=== PATIENT | male | born 1940 | race Caucasian/White ===

== ENCOUNTER 2017-08-16 21:09 | Inpatient (IN) | payer MEDICARE, OTHER ==
[2017-08-16] MEDS: ONDANSETRON 4 MG INJ IV (21:42)
[2017-08-16] MEDS: HYDROCODONE/APAP (10/325) TAB PO (21:43)
[2017-08-16 21:58] LABS: ADD MAN DIFF? NO
[2017-08-16 22:03] LABS: BASOPHILS % 0.3 % (0.0-2.0); EOSINOPHILS # 0.3 10^3/ul (0.0-0.5); EOSINOPHILS % 3.9 % (0.0-7.0); HEMOGLOBIN 10.8 g/dl (14.0-18.0); LYMPHOCYTES # 1.1 10^3/ul (0.8-2.9); LYMPHOCYTES % 13.2 % (15.0-51.0); MEAN CORPUSCULAR HEMOGLOBIN 33.2 pg (29.0-33.0); MEAN CORPUSCULAR HGB CONC 33.8 g/dl (32.0-37.0); MEAN CORPUSCULAR VOLUME 98.5 fl (82.0-101.0); MONOCYTE # 0.7 10^3/ul (0.3-0.9); MONOCYTES % 8.2 % (0.0-11.0); NEUTROPHIL # 6.4 10^3/ul (1.6-7.5); NEUTROPHILS % 74.1 % (39.0-77.0); PLATELET COUNT 205 10^3/UL (140-415); RED BLOOD COUNT 3.25 10^6/ul (4.70-6.10); RED CELL DISTRIBUTION WIDTH 13.8 % (11.5-14.5)
[2017-08-16 22:03] LABS: WHITE BLOOD COUNT 8.6 10^3/ul (4.8-10.8)
[2017-08-16 22:19] LABS: ANION GAP 17 (8-16); BLOOD UREA NITROGEN 44 mg/dl (7-20); CARBON DIOXIDE 25 mmol/L (21-31); CHLORIDE 105 mmol/L (97-110); GLUCOSE 185 mg/dl (70-220); POTASSIUM 5.3 mmol/L (3.5-5.1); SODIUM 142 mmol/L (135-144)
[2017-08-16 22:34] LABS: TROPONIN-I < 0.012 ng/ml (0.00-0.12)
[2017-08-16] MEDS ORDERED: ACETAMINOPHEN 325 MG TAB PO (23:30)
[2017-08-16] MEDS ORDERED: ONDANSETRON 4 MG INJ IV (23:30)
[2017-08-17] MEDS: NA POLYST SULFON 15 GM/60 ML BTL PO
[2017-08-17] MEDS: SOD CHLORIDE 0.9% 1,000 ML IV ×2 (01:43)
[2017-08-17] MEDS: HYDROCODONE/APAP (10/325) TAB PO (20:14)
[2017-08-17] MEDS: ONDANSETRON 4 MG INJ IV (20:14)
[2017-08-18] MEDS ORDERED: NACL 0.9% 3 ML SYG IV (02:00)
[2017-08-18] MEDS ORDERED: NITROGLYCERIN (SL) 0.4 MG TAB SL (02:00)
[2017-08-18 02:39] LABS: ADD MAN DIFF? NO
[2017-08-18 02:40] LABS: BASOPHILS % 0.2 % (0.0-2.0); EOSINOPHILS # 0.4 10^3/ul (0.0-0.5); EOSINOPHILS % 4.6 % (0.0-7.0); HEMATOCRIT 30.6 % (42.0-52.0); HEMOGLOBIN 10.1 g/dl (14.0-18.0); LYMPHOCYTES # 1.5 10^3/ul (0.8-2.9); LYMPHOCYTES % 16.1 % (15.0-51.0); MEAN PLATELET VOLUME 10.5 fl (7.4-10.4); MONOCYTE # 0.8 10^3/ul (0.3-0.9); MONOCYTES % 8.6 % (0.0-11.0); NEUTROPHIL # 6.3 10^3/ul (1.6-7.5); NEUTROPHILS % 69.8 % (39.0-77.0); PLATELET COUNT 183 10^3/UL (140-415); RED BLOOD COUNT 3.06 10^6/ul (4.70-6.10); RED CELL DISTRIBUTION WIDTH 13.2 % (11.5-14.5)
[2017-08-18 03:00] LABS: CREATINE KINASE 70 IU/L (23-200)
[2017-08-18] MEDS ORDERED: GLUCOSE GEL 15 GRAM TUBE PO ×2 (03:00)
[2017-08-18] MEDS ORDERED: GLUCAGON 1 MG INJ IM (03:00)
[2017-08-18] MEDS ORDERED: DEXTROSE 50% 50 ML SYRINGE IV ×2 (03:00)
[2017-08-18] MEDS ORDERED: GLUCOSE GEL 15 GRAM TUBE BUCCAL (03:00)
[2017-08-18 03:04] LABS: ALANINE AMINOTRANSFERASE 23 IU/L (13-69); ALBUMIN 3.6 g/dl (3.3-4.9); ALKALINE PHOSPHATASE 74 IU/L (42-121); ANION GAP 16 (8-16); ASPARTATE AMINO TRANSFERASE 15 IU/L (15-46); BILIRUBIN,INDIRECT 0.2 mg/dl (0-1.1); BILIRUBIN,TOTAL 0.2 mg/dl (0.2-1.3); BLOOD UREA NITROGEN 36 mg/dl (7-20); CALCIUM 8.8 mg/dl (8.4-10.2); CARBON DIOXIDE 26 mmol/L (21-31); CHLORIDE 108 mmol/L (97-110); CREATININE 1.97 mg/dl (0.61-1.24); GLUCOSE 92 mg/dl (70-220); MAGNESIUM 2.1 mg/dl (1.7-2.5); POTASSIUM 4.3 mmol/L (3.5-5.1); SODIUM 146 mmol/L (135-144); TOTAL PROTEIN 7.2 g/dl (6.1-8.1)
[2017-08-18 03:04] LABS: HEMOGLOBIN A1C 6.2 % (0-5.9)
[2017-08-18 03:13] LABS: TROPONIN-I 0.026 ng/ml (0.00-0.12)
[2017-08-18 03:14] LABS: CK-MB 1.43 ng/ml (0.0-2.4)
[2017-08-18] MEDS ORDERED: SERTRALINE 50 MG TAB PO (09:00)
[2017-08-18] MEDS: LOSARTAN 25 MG TAB PO (09:00)
[2017-08-18 09:24] LABS: CREATINE KINASE 65 IU/L (23-200)
[2017-08-18 09:38] LABS: CK INDEX 1.9; TROPONIN-I 0.033 ng/ml (0.00-0.12)
[2017-08-18 09:39] LABS: CK-MB 1.25 ng/ml (0.0-2.4)
[2017-08-18] MEDS: POTASSIUM CHLORIDE (SR) 20 MEQ TAB PO (09:39)
[2017-08-18] MEDS: FUROSEMIDE 20 MG TAB PO (09:39)
[2017-08-18] MEDS: APIXABAN 5 MG TABLET PO ×2 (09:39→22:29)
[2017-08-18] MEDS: LINAGLIPTIN 5 MG TABLET PO (09:39)
[2017-08-18] MEDS: ONDANSETRON 4 MG INJ IV (12:05)
[2017-08-18] MEDS: ACETAMINOPHEN 325 MG TAB PO (15:38)
[2017-08-18 19:16] LABS: ADD UMIC NO; UR ASCORBIC ACID NEGATIVE (NEGATIVE); UR BILIRUBIN (Dip) NEGATIVE (NEGATIVE); UR BLOOD (Dip) NEGATIVE (NEGATIVE); UR CLARITY CLEAR (CLEAR); UR COLOR STRAW (YELLOW); UR GLUCOSE (Dip) NEGATIVE (NEGATIVE); UR KETONES (Dip) NEGATIVE (NEGATIVE); UR LEUKOCYTE ESTERASE (Dip) NEGATIVE Leu/ul (NEGATIVE); UR NITRITE (Dip) NEGATIVE (NEGATIVE); UR SPECIFIC GRAVITY (Dip) 1.009 (1.003-1.030); UR TOTAL PROTEIN (Dip) NEGATIVE (NEGATIVE); UR UROBILINOGEN (Dip) NEGATIVE (NEGATIVE)
[2017-08-18 19:25] LABS: CREATININE,URINE RANDOM 46.45 mg/dl (20-370)
[2017-08-18 19:25] LABS: SODIUM,URINE RANDOM 83 mmol/L (30-90)
[2017-08-18] MEDS: ATORVASTATIN 40 MG TAB PO (22:29)
[2017-08-18] MEDS: TAMSULOSIN (SR) 0.4 MG CAP PO (22:30)
[2017-08-18] MEDS: SERTRALINE 50 MG TAB PO (22:30)
[2017-08-19 06:59] LABS: ADD MAN DIFF? NO
[2017-08-19 07:02] LABS: BASOPHILS % 0.4 % (0.0-2.0); EOSINOPHILS # 0.3 10^3/ul (0.0-0.5); EOSINOPHILS % 3.6 % (0.0-7.0); HEMATOCRIT 30.5 % (42.0-52.0); LYMPHOCYTES # 1.1 10^3/ul (0.8-2.9); LYMPHOCYTES % 12.9 % (15.0-51.0); MEAN CORPUSCULAR HEMOGLOBIN 32.2 pg (29.0-33.0); MEAN CORPUSCULAR HGB CONC 32.8 g/dl (32.0-37.0); MEAN CORPUSCULAR VOLUME 98.1 fl (82.0-101.0); MEAN PLATELET VOLUME 10.4 fl (7.4-10.4); MONOCYTE # 0.7 10^3/ul (0.3-0.9); MONOCYTES % 8.5 % (0.0-11.0); NEUTROPHIL # 6.4 10^3/ul (1.6-7.5); NEUTROPHILS % 74.2 % (39.0-77.0); PLATELET COUNT 195 10^3/UL (140-415); RED BLOOD COUNT 3.11 10^6/ul (4.70-6.10); RED CELL DISTRIBUTION WIDTH 13.3 % (11.5-14.5)
[2017-08-19 07:02] LABS: WHITE BLOOD COUNT 8.6 10^3/ul (4.8-10.8)
[2017-08-19 07:25] LABS: ALANINE AMINOTRANSFERASE 25 IU/L (13-69); ALBUMIN 3.5 g/dl (3.3-4.9); ALKALINE PHOSPHATASE 69 IU/L (42-121); ANION GAP 18 (8-16); ASPARTATE AMINO TRANSFERASE 13 IU/L (15-46); BILIRUBIN,INDIRECT 0.2 mg/dl (0-1.1); BILIRUBIN,TOTAL 0.2 mg/dl (0.2-1.3); BLOOD UREA NITROGEN 39 mg/dl (7-20); CALCIUM 8.6 mg/dl (8.4-10.2); CARBON DIOXIDE 23 mmol/L (21-31); CHLORIDE 107 mmol/L (97-110); CREATINE KINASE 82 IU/L (23-200); CREATININE 1.96 mg/dl (0.61-1.24); GLUCOSE 124 mg/dl (70-220); HDL CHOLESTEROL 26 mg/dl (31-75); LDL CHOLESTEROL,CALCULATED 64 mg/dl; POTASSIUM 3.9 mmol/L (3.5-5.1); SODIUM 144 mmol/L (135-144); TOTAL PROTEIN 6.4 g/dl (6.1-8.1); TRIGLYCERIDES 80 mg/dl (0-149)
[2017-08-19 07:25] LABS: CHOLESTEROL 106 mg/dl (100-200)
[2017-08-19 07:30] LABS: CK INDEX 1.7; TROPONIN-I 0.042 ng/ml (0.00-0.12)
[2017-08-19 07:32] LABS: B-TYPE NATRIURETIC PEPTIDE 8370 PG/ML (0-450)
[2017-08-19 07:43] LABS: MAGNESIUM 1.9 mg/dl (1.7-2.5)
[2017-08-19 07:43] LABS: PHOSPHORUS 3.5 mg/dl (2.5-4.9)
[2017-08-19 07:56] LABS: FREE T4 (FREE THYROXINE) 0.99 ng/dl (0.78-2.44)
[2017-08-19] MEDS: APIXABAN 5 MG TABLET PO (08:58)
[2017-08-19] MEDS: LINAGLIPTIN 5 MG TABLET PO (08:58)
[2017-08-19 13:19] LABS: INR 1.81; PROTIME 21.4 Sec (11.9-14.9); PT RATIO 1.7
[2017-08-19] MEDS: ATORVASTATIN 40 MG TAB PO (20:56)
[2017-08-19] MEDS: TAMSULOSIN (SR) 0.4 MG CAP PO (20:56)
[2017-08-19] MEDS: SERTRALINE 50 MG TAB PO (20:56)
[2017-08-19] MEDS: ACETAMINOPHEN 325 MG TAB PO (21:40)
[2017-08-20] MEDS: HYDROCODONE/APAP (5/325) TAB PO ×2 (00:21→21:11)
[2017-08-20 08:43] LABS: ADD MAN DIFF? NO
[2017-08-20 08:45] LABS: WHITE BLOOD COUNT 7.6 10^3/ul (4.8-10.8)
[2017-08-20 08:45] LABS: HEMATOCRIT 31.2 % (42.0-52.0); HEMOGLOBIN 10.4 g/dl (14.0-18.0); MEAN CORPUSCULAR VOLUME 98.4 fl (82.0-101.0); RED BLOOD COUNT 3.17 10^6/ul (4.70-6.10)
[2017-08-20 08:46] LABS: BASOPHILS % 0.3 % (0.0-2.0); EOSINOPHILS # 0.4 10^3/ul (0.0-0.5); EOSINOPHILS % 4.8 % (0.0-7.0); LYMPHOCYTES % 12.5 % (15.0-51.0); MEAN CORPUSCULAR HEMOGLOBIN 32.8 pg (29.0-33.0); MEAN CORPUSCULAR HGB CONC 33.3 g/dl (32.0-37.0); MEAN PLATELET VOLUME 10.3 fl (7.4-10.4); MONOCYTE # 0.7 10^3/ul (0.3-0.9); MONOCYTES % 8.5 % (0.0-11.0); NEUTROPHIL # 5.6 10^3/ul (1.6-7.5); NEUTROPHILS % 73.4 % (39.0-77.0); PLATELET COUNT 197 10^3/UL (140-415); RED CELL DISTRIBUTION WIDTH 13.2 % (11.5-14.5)
[2017-08-20] MEDS: LINAGLIPTIN 5 MG TABLET PO (08:59)
[2017-08-20 09:08] LABS: ANION GAP 15 (8-16); BLOOD UREA NITROGEN 36 mg/dl (7-20); CALCIUM 8.6 mg/dl (8.4-10.2); CARBON DIOXIDE 26 mmol/L (21-31); CHLORIDE 107 mmol/L (97-110); CREATININE 1.83 mg/dl (0.61-1.24); GLUCOSE 114 mg/dl (70-220); PHOSPHORUS 3.1 mg/dl (2.5-4.9); POTASSIUM 3.8 mmol/L (3.5-5.1); SODIUM 144 mmol/L (135-144)
[2017-08-20 15:12] LABS: CREATININE, RANDOM URINE 55 mg/dL (20-370); MICROALBUMIN 1.8 mg/dL; MICROALBUMIN/CREATININE RATIO 33 (<30)
[2017-08-20] MEDS: LIDOCAINE 1% (MDV) 10 ML INJ (16:18)
[2017-08-20 18:02] LABS: TOTAL PROTEIN 6.6 g/dl (6.1-8.1)
[2017-08-20 18:46] LABS: FLUID TOTAL PROTEIN 4.2 g/dl
[2017-08-20] MEDS: TAMSULOSIN (SR) 0.4 MG CAP PO (20:26)
[2017-08-20] MEDS: SERTRALINE 50 MG TAB PO (20:26)
[2017-08-20] MEDS: ATORVASTATIN 40 MG TAB PO (20:26)
[2017-08-21] MEDS: HYDROCODONE/APAP (5/325) TAB PO (02:32)
[2017-08-21 07:58] LABS: ADD MAN DIFF? NO
[2017-08-21 08:01] LABS: BASOPHILS % 0.6 % (0.0-2.0); EOSINOPHILS # 0.4 10^3/ul (0.0-0.5); EOSINOPHILS % 5.1 % (0.0-7.0); HEMATOCRIT 29.4 % (42.0-52.0); LYMPHOCYTES # 1.3 10^3/ul (0.8-2.9); LYMPHOCYTES % 19.6 % (15.0-51.0); MEAN CORPUSCULAR HEMOGLOBIN 33.2 pg (29.0-33.0); MEAN CORPUSCULAR VOLUME 97.7 fl (82.0-101.0); MEAN PLATELET VOLUME 10.2 fl (7.4-10.4); MONOCYTE # 0.6 10^3/ul (0.3-0.9); NEUTROPHIL # 4.4 10^3/ul (1.6-7.5); NEUTROPHILS % 65.1 % (39.0-77.0); PLATELET COUNT 191 10^3/UL (140-415); RED BLOOD COUNT 3.01 10^6/ul (4.70-6.10); RED CELL DISTRIBUTION WIDTH 13.2 % (11.5-14.5)
[2017-08-21 08:01] LABS: WHITE BLOOD COUNT 6.8 10^3/ul (4.8-10.8)
[2017-08-21 08:27] LABS: ANION GAP 14 (8-16); BLOOD UREA NITROGEN 31 mg/dl (7-20); CALCIUM 8.8 mg/dl (8.4-10.2); CARBON DIOXIDE 27 mmol/L (21-31); CHLORIDE 107 mmol/L (97-110); CREATININE 1.82 mg/dl (0.61-1.24); GLUCOSE 113 mg/dl (70-220); POTASSIUM 4.1 mmol/L (3.5-5.1); SODIUM 144 mmol/L (135-144)
[2017-08-21] MEDS: LINAGLIPTIN 5 MG TABLET PO (08:36)
[2017-08-21] MEDS: FUROSEMIDE 40 MG TAB PO (08:36)
[2017-08-21 08:44] LABS: PHOSPHORUS 3.5 mg/dl (2.5-4.9)
[2017-08-21 08:44] LABS: MAGNESIUM 2.1 mg/dl (1.7-2.5)
[2017-08-21] MEDS: APIXABAN 5 MG TABLET PO (11:46)
== END 2017-08-21 16:30 | disposition home or self-care (01) | DRG 186 ==
LOC: MS4 23:18 → E/R 21:09 → MS4 08-17 23:50
PROC: 0W9B3ZX Drainage of Left Pleural Cavity, Percutaneous Approach, Diagnostic (ICD-10-PCS; principal; 2017-08-20)
DX: J90 Pleural effusion, not elsewhere classified (principal); I50.33 Acute on chronic diastolic (congestive) heart failure; N17.9 Acute kidney failure, unspecified; I13.0 Hypertensive heart and chronic kidney disease with heart failure and stage 1 through stage 4 chronic kidney disease, or unspecified chronic kidney disease; E87.0 Hyperosmolality and hypernatremia; I69.351 Hemiplegia and hemiparesis following cerebral infarction affecting right dominant side; D68.59 Other primary thrombophilia; I42.9 Cardiomyopathy, unspecified; N18.9 Chronic kidney disease, unspecified; I48.2 Chronic atrial fibrillation; E11.22 Type 2 diabetes mellitus with diabetic chronic kidney disease; N40.0 Benign prostatic hyperplasia without lower urinary tract symptoms; E87.5 Hyperkalemia; D64.9 Anemia, unspecified; D69.6 Thrombocytopenia, unspecified; R07.89 Other chest pain; I25.10 Atherosclerotic heart disease of native coronary artery without angina pectoris; Z79.4 Long term (current) use of insulin; Z79.84 Long term (current) use of oral hypoglycemic drugs; Z79.02 Long term (current) use of antithrombotics/antiplatelets; Z79.82 Long term (current) use of aspirin
CPT/HCPCS: 36415; 71045; 76775; 76942; 80048; 80053; 80061; 81003; 82043; 82550; 82553; 83036; 83735; 83880; 84100; 84155; 84157; 84300; 84439; 84443; 84484; 85025; 85610; 87070; 87102; 87116; 93005; 93306; 96374; 96376; 99285-25; G0378

== ENCOUNTER 2018-08-26 11:38 | Inpatient (IN) | payer MEDICARE, OTHER ==
[2018-08-26 12:25] LABS: ADD MAN DIFF? NO
[2018-08-26 12:32] LABS: BASOPHIL # 0.1 10^3/ul (0.0-0.1); BASOPHILS % 0.7 % (0.0-2.0); EOSINOPHILS # 0.4 10^3/ul (0.0-0.5); HEMATOCRIT 32.9 % (42.0-52.0); HEMOGLOBIN 10.6 g/dl (14.0-18.0); LYMPHOCYTES # 1.2 10^3/ul (0.8-2.9); MEAN CORPUSCULAR HEMOGLOBIN 31.5 pg (29.0-33.0); MEAN CORPUSCULAR HGB CONC 32.2 g/dl (32.0-37.0); MEAN CORPUSCULAR VOLUME 97.6 fl (82.0-101.0); MEAN PLATELET VOLUME 9.9 fl (7.4-10.4); MONOCYTE # 0.6 10^3/ul (0.3-0.9); MONOCYTES % 7.6 % (0.0-11.0); NEUTROPHIL # 5.1 10^3/ul (1.6-7.5); NEUTROPHILS % 70.3 % (39.0-77.0); PLATELET COUNT 213 10^3/UL (140-415); RED BLOOD COUNT 3.37 10^6/ul (4.70-6.10); RED CELL DISTRIBUTION WIDTH 14.3 % (11.5-14.5)
[2018-08-26 12:32] LABS: WHITE BLOOD COUNT 7.2 10^3/ul (4.8-10.8)
[2018-08-26 12:48] LABS: ALANINE AMINOTRANSFERASE 11 IU/L (13-69); ALBUMIN 3.9 g/dl (3.3-4.9); ALKALINE PHOSPHATASE 74 IU/L (42-121); ANION GAP 11 (5-13); ASPARTATE AMINO TRANSFERASE 20 IU/L (15-46); BILIRUBIN,INDIRECT 0.4 mg/dl (0-1.1); BILIRUBIN,TOTAL 0.4 mg/dl (0.2-1.3); BLOOD UREA NITROGEN 27 mg/dl (7-20); CARBON DIOXIDE 27 mmol/L (21-31); CHLORIDE 103 mmol/L (97-110); CREATININE 2.04 mg/dl (0.61-1.24); GLUCOSE 177 mg/dl (70-220); POTASSIUM 4.5 mmol/L (3.5-5.1); SODIUM 141 mmol/L (135-144); TOTAL PROTEIN 8.2 g/dl (6.1-8.1)
[2018-08-26 13:01] LABS: TROPONIN-I < 0.012 ng/ml (0.000-0.120)
[2018-08-26] MEDS ORDERED: NITROGLYCERIN 0.4 MG/HR PATCH TRANSDERM (13:30)
[2018-08-26] MEDS: ASPIRIN (EC) 325 MG TAB PO (13:45)
[2018-08-26] MEDS: FUROSEMIDE 20 MG INJ IV ×2 (13:45→20:44)
[2018-08-26] MEDS: ENALAPRILAT 1.25 MG INJ IV (14:35)
[2018-08-26] MEDS ORDERED: morphine 2 MG INJ IV (16:00)
[2018-08-26] MEDS ORDERED: DOCUSATE SODIUM 100 MG CAP PO (16:00)
[2018-08-26] MEDS ORDERED: hydrALAzine 20 MG INJ IV (16:00)
[2018-08-26] MEDS ORDERED: LORAZEPAM 2 MG INJ IV (16:00)
[2018-08-26] MEDS ORDERED: NACL 0.9% 3 ML SYG IV (16:00)
[2018-08-26] MEDS ORDERED: ALBUTEROL/IPRATROPIUM (NEB) 3 ML AMP HHN (16:00)
[2018-08-26] MEDS ORDERED: ACETAMINOPHEN 325 MG TAB PO (16:00)
[2018-08-26] MEDS ORDERED: ONDANSETRON 4 MG INJ IV (16:00)
[2018-08-26] MEDS ORDERED: MAGNESIUM HYDROXIDE 30ML CUP PO (16:00)
[2018-08-26] MEDS ORDERED: NITROGLYCERIN (SL) 0.4 MG TAB SL (16:00)
[2018-08-26] MEDS: INSULIN ASPART [NOVOLOG] 3 ML PEN SC ×2 (17:00→20:44)
[2018-08-26] MEDS: traMADol 50 MG TAB PO (17:57)
[2018-08-26 19:23] LABS: CREATINE KINASE 58 IU/L (23-200); INR 1.29; PROTIME 16.2 Sec (11.9-14.9); PT RATIO 1.3
[2018-08-26 19:35] LABS: CK INDEX 1.7; CK-MB 1.01 ng/ml (0.0-2.4); TROPONIN-I < 0.012 ng/ml (0.000-0.120)
[2018-08-26 19:39] LABS: FREE T4 (FREE THYROXINE) 1.08 ng/dl (0.78-2.44)
[2018-08-26] MEDS: ATORVASTATIN 40 MG TAB PO (20:43)
[2018-08-26] MEDS: NITROGLYCERIN 0.2 MG/HR PATCH TRANSDERM (21:26)
[2018-08-26] MEDS: HYDROCODONE/APAP (5/325) TAB PO (22:49)
[2018-08-26] MEDS: ZOLPIDEM 5 MG TAB PO (22:50)
[2018-08-27] MEDS: INSULIN ASPART [NOVOLOG] 3 ML PEN SC ×4 (01:00→14:27)
[2018-08-27 01:34] LABS: CREATINE KINASE 60 IU/L (23-200)
[2018-08-27 01:47] LABS: CK INDEX 1.6; CK-MB 0.96 ng/ml (0.0-2.4); TROPONIN-I < 0.012 ng/ml (0.000-0.120)
[2018-08-27] MEDS: PANTOPRAZOLE (EC) 40 MG TAB PO (05:24)
[2018-08-27] MEDS: FUROSEMIDE 20 MG INJ IV (05:24)
[2018-08-27 07:38] LABS: ADD MAN DIFF? NO
[2018-08-27 07:48] LABS: BASOPHILS % 0.5 % (0.0-2.0); EOSINOPHILS # 0.4 10^3/ul (0.0-0.5); EOSINOPHILS % 6.1 % (0.0-7.0); HEMATOCRIT 33.5 % (42.0-52.0); HEMOGLOBIN 10.6 g/dl (14.0-18.0); LYMPHOCYTES # 1.6 10^3/ul (0.8-2.9); LYMPHOCYTES % 24.5 % (15.0-51.0); MEAN CORPUSCULAR HEMOGLOBIN 30.4 pg (29.0-33.0); MEAN CORPUSCULAR HGB CONC 31.6 g/dl (32.0-37.0); MEAN PLATELET VOLUME 10.1 fl (7.4-10.4); MONOCYTE # 0.5 10^3/ul (0.3-0.9); MONOCYTES % 7.6 % (0.0-11.0); PLATELET COUNT 224 10^3/UL (140-415); RED BLOOD COUNT 3.49 10^6/ul (4.70-6.10); RED CELL DISTRIBUTION WIDTH 14.2 % (11.5-14.5)
[2018-08-27 07:48] LABS: WHITE BLOOD COUNT 6.6 10^3/ul (4.8-10.8)
[2018-08-27 08:13] LABS: ANION GAP 9 (5-13); BLOOD UREA NITROGEN 23 mg/dl (7-20); CALCIUM 8.9 mg/dl (8.4-10.2); CARBON DIOXIDE 29 mmol/L (21-31); CHLORIDE 103 mmol/L (97-110); CHOL/HDL RATIO 3.7 RATIO; CHOLESTEROL 108 mg/dl (100-200); CREATININE 2.05 mg/dl (0.61-1.24); GLUCOSE 108 mg/dl (70-220); HDL CHOLESTEROL 29 mg/dl (31-75); LDL CHOLESTEROL,CALCULATED 65 mg/dl; MAGNESIUM 1.8 mg/dl (1.7-2.5); PHOSPHORUS 3.3 mg/dl (2.5-4.9); POTASSIUM 3.9 mmol/L (3.5-5.1); SODIUM 141 mmol/L (135-144); TRIGLYCERIDES 70 mg/dl (0-149)
[2018-08-27 08:39] LABS: HEMOGLOBIN A1C 6.3 % (0-5.9)
[2018-08-27] MEDS: TOLTERODINE 2 MG TAB PO (08:50)
[2018-08-27] MEDS: HYDROCODONE/APAP (5/325) TAB PO ×2 (08:51→21:27)
[2018-08-27] MEDS: APIXABAN 5 MG TABLET PO ×2 (08:52→21:12)
[2018-08-27] MEDS: SERTRALINE 50 MG TAB PO (08:52)
[2018-08-27] MEDS: ERGOCALCIFEROL 50,000 UNIT CAP PO (08:52)
[2018-08-27] MEDS ORDERED: FUROSEMIDE 40 MG TAB PO (09:00)
[2018-08-27] MEDS ORDERED: NON-FORMULARY/PATIENT OWN MED (Esomeprazole Mag Trihydrate (Nexium) 40 MG) PO (09:00)
[2018-08-27] MEDS ORDERED: INSULIN ASPART [NOVOLOG] 3 ML PEN SC (17:25)
[2018-08-27] MEDS: Insulin NOVOLOG SS MILD Algorithm (SS with meals and bedtime) SC (21:00)
[2018-08-27] MEDS: ATORVASTATIN 40 MG TAB PO (21:11)
[2018-08-27] MEDS: ZOLPIDEM 5 MG TAB PO (21:42)
[2018-08-28] MEDS: ACCUCHECK AT 2AM (Patients on SS coverage) XX (01:04)
[2018-08-28] MEDS: PANTOPRAZOLE (EC) 40 MG TAB PO (06:21)
[2018-08-28 07:00] LABS: WHITE BLOOD COUNT 7.1 10^3/ul (4.8-10.8)
[2018-08-28 07:00] LABS: ADD MAN DIFF? NO; BASOPHIL # 0.1 10^3/ul (0.0-0.1); EOSINOPHILS # 0.5 10^3/ul (0.0-0.5); EOSINOPHILS % 6.3 % (0.0-7.0); HEMATOCRIT 33.2 % (42.0-52.0); HEMOGLOBIN 10.6 g/dl (14.0-18.0); LYMPHOCYTES # 1.6 10^3/ul (0.8-2.9); LYMPHOCYTES % 21.7 % (15.0-51.0); MEAN CORPUSCULAR HGB CONC 31.9 g/dl (32.0-37.0); MEAN CORPUSCULAR VOLUME 97.1 fl (82.0-101.0); MEAN PLATELET VOLUME 10.3 fl (7.4-10.4); MONOCYTE # 0.5 10^3/ul (0.3-0.9); MONOCYTES % 7.4 % (0.0-11.0); NEUTROPHIL # 4.5 10^3/ul (1.6-7.5); NEUTROPHILS % 63.2 % (39.0-77.0); PLATELET COUNT 229 10^3/UL (140-415); RED BLOOD COUNT 3.42 10^6/ul (4.70-6.10)
[2018-08-28 07:20] LABS: ANION GAP 8 (5-13); BLOOD UREA NITROGEN 24 mg/dl (7-20); CALCIUM 9.1 mg/dl (8.4-10.2); CARBON DIOXIDE 26 mmol/L (21-31); CHLORIDE 107 mmol/L (97-110); CREATININE 2.08 mg/dl (0.61-1.24); GLUCOSE 117 mg/dl (70-220); POTASSIUM 3.9 mmol/L (3.5-5.1); SODIUM 141 mmol/L (135-144)
[2018-08-28] MEDS: Insulin NOVOLOG SS MILD Algorithm (SS with meals and bedtime) SC ×2 (08:37→12:49)
[2018-08-28] MEDS: SERTRALINE 50 MG TAB PO (08:38)
[2018-08-28] MEDS: APIXABAN 5 MG TABLET PO (08:38)
[2018-08-28] MEDS: TOLTERODINE 2 MG TAB PO (08:38)
[2018-08-28] MEDS: FUROSEMIDE 40 MG TAB PO (08:39)
[2018-08-28] MEDS: HYDROCODONE/APAP (5/325) TAB PO (16:30)
== END 2018-08-28 17:00 | disposition home or self-care (01) | DRG 291 ==
LOC: E/R 11:38 → TEL 13:26
DX: I13.0 Hypertensive heart and chronic kidney disease with heart failure and stage 1 through stage 4 chronic kidney disease, or unspecified chronic kidney disease (principal); I50.33 Acute on chronic diastolic (congestive) heart failure; I69.351 Hemiplegia and hemiparesis following cerebral infarction affecting right dominant side; I48.2 Chronic atrial fibrillation; Z79.01 Long term (current) use of anticoagulants; N18.9 Chronic kidney disease, unspecified; I25.10 Atherosclerotic heart disease of native coronary artery without angina pectoris; N40.0 Benign prostatic hyperplasia without lower urinary tract symptoms; E78.00 Pure hypercholesterolemia, unspecified; E11.22 Type 2 diabetes mellitus with diabetic chronic kidney disease; M25.522 Pain in left elbow; Z74.01 Bed confinement status
CPT/HCPCS: 36415; 71045; 73080-LT; 80048; 80053; 80061; 82550; 82553; 82962; 83036; 83735; 84100; 84439; 84443; 84484; 85025; 85610; 85730; 93005; 93306; 97116; 97161; 97167; 97530; 99285-25